=== PATIENT | female | born 1965 | race Caucasian/White ===

== ENCOUNTER 2016-11-30 14:15 | Day surgery (SDC) | payer OTHER ==
[~2016-11-30] VITALS: Ht 175.3 cm; Wt 69.0 kg
[~2016-11-30 14:15] MED LIST: ALBU18HF INH; HYDR-4003 PO; OMEP40CA36 PO; ONDA-53 PO
[2016-11-30] MEDS ORDERED: MethylprednisoLONE Depot 80 mg/mL Inj ONE (14:16)
[2016-11-30] MEDS ORDERED: Iohexol 240 mg/mL 10 mL Inj ONE (14:16)
[2016-11-30] MEDS ORDERED: Bupivacaine-MPF 0.25% 30 mL Inj ONE (14:16)
[2016-11-30] MEDS ORDERED: LEDI1TAB PO (14:57)
[2016-11-30] MEDS ORDERED: GABA-502 PO (14:57)
[2016-11-30] MEDS ORDERED: AMIT10TA6 PO (14:57)
[2016-11-30] MEDS ORDERED: LOSA50TA37 PO (14:57)
[2016-11-30 15:00] VITALS: BP 150/101; PULSE 72; RESP 16; O2SAT 98
[2016-11-30 15:15] VITALS: BP 171/96; PULSE 81; RESP 16; O2SAT 97
--- NOTE | 2016-11-30 15:59 | PCM.PROC ---
Procedure Note Date of Service: Nov 30, 2016 Pre Procedure Diagnosis: PROCEDURE: LEFT Sacroiliac joint injection (fluoroscopically guided) PRE-PROCEDURE DIAGNOSIS: Sacroiliitis POST-PROCEDURE DIAGNOSIS: same INDICATION: 51-year-old female with posterior hip pain, suggestive of sacroiliitis ASA / ANTICOAGULATION: No asa x 7 days PERFORMED BY: Brayden Lopez MD DESCRIPTION OF PROCEDURE: Patient was met in the holding area. Consent was signed, site was confirmed and all questions were answered. Patient was taken to the procedure suite and placed prone on the procedure table. Local anesthesia with 1% lidocaine was injected into the epidermidis and dermis. A 22-gauge Quincke spinal needle was advanced towards the sacroiliac joint after visualization was optimized fluoroscopically in the AP view. Proper positioning in the joint was confirmed by injecting contrast. We then took a lateral view to reconfirm proper positioning in the sacroiliac joint. 80mg depomedrol with 2 cc of 0.25% Bupivicaine injected without difficulty. ANESTHESIA: Local. EBL: None. No Blood Products Used COMPLICATIONS: None SPECIMENS: None POST-PROCEDURE DISPOSITION: Patient tolerated the procedure well was returned to the holding area in stable condition. They were discharged home when all discharge criteria were met. Fluro time: See Radiology Report Evaluation/Physical Exam before discharge revealed: DISCHARGE MEDICATIONS: none FOLLOW UP: 6 weeks Brayden Lopez MD * Pain Management * Anesthesiology Brayden Lopez MD Nov 30, 2016 15:59
== END 2016-11-30 23:59 | disposition home or self-care (01) ==
LOC: END 14:15
PROVIDERS: ATTEND Anesthesiology Pain Medicine
DX: M46.1 Sacroiliitis, not elsewhere classified (principal); M25.552 Pain in left hip; B18.2 Chronic viral hepatitis C; F10.21 Alcohol dependence, in remission
CPT/HCPCS: G0260; J1040

== ENCOUNTER 2016-12-28 09:26 | Day surgery (SDC) | payer OTHER ==
[~2016-12-28] VITALS: Ht 179.1 cm; Wt 70.0 kg
[~2016-12-28 09:26] MED LIST changes: +0.9% Sodium Chloride 1,000 ML IV SCH; +AMIT10TA6 PO; +GABA-502 PO; +LEDI1TAB PO; +LOSA50TA37 PO; +Sodium Chloride LOK Flush 10 mL Syringe IV PRN; +fentaNYL-PF 50 mCg/mL 2 mL Inj IVPUSH PRN
[2016-12-28] MEDS ORDERED: Propofol 10,000 mCg/mL 20 mL Inj ONE (09:27)
[2016-12-28 11:05] VITALS: BP 127/98; PULSE 64; RESP 18; O2SAT 97
[2016-12-28 12:20] VITALS: BP 171/102; PULSE 67; RESP 16; O2SAT 98
[2016-12-28 12:30] VITALS: BP 134/96; PULSE 71; RESP 14; O2SAT 98
--- NOTE | 2016-12-28 12:30 | PCM.HPANE ---
Patient Data Date of Service: Dec 28, 2016 Surgeon Admitting Provider: Attending Provider:Radha Spencer MD Primary Care Physician:Other,Physician Other Provider:[facility] Reason for Visit Gastric Mass Ht/WT & BMI Height (Feet): 5 Height (Inches): 10.5 Weight (Kilograms): 70 Body Mass Index 21.00 Allergies Coded Allergies: No Known Allergies (Verified Allergy, Unknown, 05/03/16) Past Anesthesia History Anesthesia History: Denies:: Abnormal Airway, Anesthesia Reactions, Difficult Intubation, Fam Anesthesia Reaction, Fam Malignant Hypertherm, Malignant Hyperthermia Diabetes History Hx Diabetes?: No MRSA MRSA: Yes (Breast) Medications Hypertension Medication: Yes Home Meds Incl Beta Damian: No Reported Medications Losartan Potassium 50 Mg [id number] Mg PO DAILY 11/30/16 Amitriptyline 10 Mg Kloylh98 Mg PO HS Ref 0 11/30/16 Gabapentin 300 Mg [id number] Mg PO DAILY Ref 0 11/30/16 Hydrocodone-Acetaminophen 5-325 mg 1 Each Tablet1 Tablet PO Q4H PRN For Pain Ref 0 11/29/16 Ondansetron 4 Mg Tablet8 Mg PO BID 11/29/16 Albuterol Sulfate (Ventolin HFA Inhaler)200 Puff/18 Gm Inhaler1 Puff INH Q4 PRN For Wheezing #1 INHALER Ref 0 05/02/16 Discontinued Reported Medications Ledipasvir/Sofosbuvir (Harvoni 90-400 mg Tablet)1 Each Tablet1 Each PO DAILY 11/30/16 Omeprazole 40 Mg Capsule.dr40 Mg PO DAILY Ref 0 11/29/16 History History of ENT Problems?: Yes HEENT History: Positive for:: Sinus Problem (deviated septum) Denies:: Abnormal Airway Difficult Intubation Dysphagia Hearing Problem Denture Type: Full- Upper Hx of Heart Problems?: Yes Cardiovascular History: Positive for:: Chest Pain (CARRIES NITRO WITH HER) Hypertension Denies:: AICD Atrial Fibrillation Pacemaker Valvular Heart Disease Hx of Respiratory Problem?: Yes Respiratory History: Positive for:: Asthma COPD (POSSIBLE IS NOT SURE IF THEY REALLY HAVE IT) Dyspnea Denies:: Cough Hemoptysis Pneumonia Tuberculosis Hx Neurologic Problems?: Yes Neurological History: Positive for:: Headaches Denies:: CVA Hx of GI Problems?: Yes Gastrointestinal History: Positive for:: Cirrhosis Gastroesphageal Reflux Heartburn Hepatitis (hep C) Denies:: Diverticulitis Gall Bladder Disease (REMOVED) Hiatal Hernia Rectal Bleeding Hx of Problems?: Yes Genitourinary History: Positive for:: Urinary Tract Infection Female Hx: Denies:: Currently (Hysterectomy) Endometriosis Pelvic Inflammatory Problems with Breasts? Hx Musculoskeletal Problems?: Yes Musculoskeletal History: Denies:: Back Injury Joint Replacement Musculoskeletal Trauma Hx of Psycho/Social Problems?: No Psycho Social History: Positive for:: Anxiety (MILD) Hx Depression (MILD) Hx Surgeries?: Yes (hysterectomy, anthony, tubal) Hx Any Other Health Problems?: Yes Other History: Positive for:: Hospitalization Denies:: Cancer Thyroid Disease History Blood Transfusions: Denies:: Blood Transfusions Hx Diabetes: No Hx Alcohol Use: No (ETOH stopped 01/13; marijuana daily) Smoking Status: Current Every Day Smoker Have You Smoked inLast 12 mo: Yes Stop/Bang Treated for Sleep Apnea?: No Do You Have a CPAP Machine?: No S-Snoring: Do You Snore Loudly: No T-Tired: feel tired, fatigued: No O-Obsered: Observed not breath: No P-Blood Pressure: treated: Yes B- Body Mass Index > 35 kg/m2: No A- Age over 50: Yes N- Neck Large Circumference: No G- Gender Male: No LORENA Total Score: 2 Risk Assessment Category Category 1A: Patient has history of documented sleep apnea, and HAS NOT received any narcotic, sedative or anesthesia administration during this stay. Category 1B: Patient has history of documented sleep apnea, and HAS received any narcotic , sedative or anesthesia administration during this stay Category 2: Patient has SUSPECTED Obstructive Sleep Apnea, and HAS received any narcotic , sedative or anesthesia administration during this stay. Category 3: Patient has SUSPECTED Obstructive Sleep Apnea and HAS NOT received narcotic, sedative or anesthesia administration during this stay. Category 4: Outpatient in Procedural Areas with known sleep apnea or who screen positive for High Risk via the STOP/BANG questionnaire. Exam Exam Vital Signs Vital Signs Date Time Temp Pulse Resp B/P Pulse Ox O2 Delivery O2 Flow Rate FiO2 12/28/16 12:20 67 16 171/102 98 Room Air 12/28/16 11:05 64 18 127/98 97 Room Air General Appearance: Alert HEENT/AIRWAY: MP 1 Lungs: Clear to Auscultation Heart: Exam Unremarkable Meds/Labs/Diagnostics Admission Meds Current Medications Sodium Chloride (Normal Saline) 1,000 ml @ 10 mls/hr Q24H IV Last administered on 12/28/16t 12:06; Start 12/28/16 at 06:00 Plan Impression Patient chart reviewed, patient interviewed and anesthestic plan with risks, benefits, and alternatives discussed, and informed consent obtained. ASA Physical Status: ASA2 Mod Systemic Disease Anesthetic Plan: MAC Bene/Risks/Altern/Consents: Yes HP Complete Prior to Induction: Yes Dread Lloyd MD Dec 28, 2016 12:30
--- NOTE | 2016-12-28 12:31 | PCM.ANEP2 ---
Post Anesthesia Evaluation ASA/CMS Post Anesthesia VS in Patient's Normal Range?: Yes Resp Stable; Airway Patent?: Yes CV Function & Hydration Stable: Yes Mental Status Recovered?: Yes Pain control Satisfactory?: Yes N/V Control Satisfactory?: Yes Dread Lloyd MD Dec 28, 2016 12:31
--- NOTE | 2016-12-28 12:31 | PCM.ANEP1 ---
Post Anesthesia Phase 1 PACU Phase 1 Assessment Date of Service: Dec 28, 2016 Vital Signs Vital Signs Date Time Temp Pulse Resp B/P Pulse Ox O2 Delivery O2 Flow Rate FiO2 12/28/16 12:20 67 16 171/102 98 Room Air 12/28/16 11:05 64 18 127/98 97 Room Air Anesthetic Administered: MAC Level of Alertness: Awake, talking Nausea or Vomiting: No Oxygen Delivery: Room Air Lungs: Clear to Auscultation Dread Lloyd MD Dec 28, 2016 12:31
[2016-12-28 12:40] VITALS: BP 140/92; PULSE 63; RESP 16; O2SAT 99
[2016-12-28 12:50] VITALS: BP 148/92; PULSE 65; RESP 16; O2SAT 99
--- NOTE | 2016-12-28 14:01 | ENDO ---
[address] [address] ENDOSCOPY PROCEDURE PATIENT: SHA REYNA : 1965 MR#: [id number] ADMIT: 12/28/2016 JOB ID: [id number] DATE: 12/28/2016 PROCEDURE: Esophagogastroduodenoscopy. INDICATIONS: Submucosal mass in the proximal gastric body seen on previous EGD last year. The patient has been brought back for surveillance of this. EUS attempt was unsuccessful secondary to the location of the mass which was unable to be visualized. Please see anesthesia report for details regarding ASA classification, Mallampati score, and medications. INSTRUMENT USED: [id number]. MEDICATIONS: Please see anesthesia report. PROCEDURE DETAILS: After informed consent was obtained, the patient was brought into the GI suite where she was placed on oxygen via nasal cannula and monitored with continuous pulse oximeter, telemetry, and blood pressure monitoring. A time-out was performed. Then, she was placed in a left lateral decubitus position and medications were administered for sedation. Bite block was placed. Standard esophagogastroduodenoscopy scope was inserted through the bite block and advanced under direct visualization to the second portion of duodenum without difficulty. FINDINGS: 1. Normal-appearing duodenal bulb, first and second portion. 2. Normal-appearing pylorus and antrum. Retroflexed views in the gastric body demonstrated an approximately 8 mm submucosal mass in the proximal gastric body. Appearance when compared to images from prior endoscopy appeared unchanged. However, I did note that the submucosal mass appeared to be pulsatile. Therefore, biopsies were not obtained. 3. The GE junction was at approximately 40 cm and appeared regular. 4. Normal-appearing esophagus. IMPRESSION: Pulsatile submucosal mass in the proximal gastric body. Recommend continued surveillance. Will plan to schedule repeat imaging with CT scan. COMPLICATIONS: None. ESTIMATED BLOOD LOSS: Zero.
== END 2016-12-28 23:59 | disposition home or self-care (01) ==
LOC: END 09:26
PROVIDERS: ATTEND Internal Medicine Gastroenterology
DX: K31.9 Disease of stomach and duodenum, unspecified (principal); I10 Essential (primary) hypertension; Z86.14 Personal history of Methicillin resistant Staphylococcus aureus infection
CPT/HCPCS: 43235; J7030